=== PATIENT | female | born 1990 | race Caucasian/White ===

== ENCOUNTER 2022-07-16 14:54 | Emergency (ER) | payer BC, SELFPAY ==
[2022-07-16] VITALS (15 sets, daily range): BP systolic 95–117; BP diastolic 55–62; PULSE 67–87; RESP 14–27; TEMP 36.3; O2SAT 96–100
--- NOTE | ~2022-07-16 | XR_ITS ---
EXAMINATION: XR chest 2V DATE: 07/16/2022 15:46 INDICATION: Chest pain and shortness of breath TECHNIQUE: PA and lateral views of the chest are obtained. COMPARISON: None available FINDINGS: The lungs are free of acute opacities. No pleural effusion or pneumothorax. The cardiomedia stinal silhouette is normal. The visualized bones and soft tissues are unremarkable. Surgical clips i n the right upper quadrant are likely from prior cholecystectomy. IMPRESSION: 1. No acute cardiopulmonary abnormality. Reviewed, dictated and finalized at location F. AL EVISCERATOR
--- NOTE | 2022-07-16 14:58 | ECG_ITS ---
Measurements Intervals [place] Rate: 78 P: 37 MA: 131 QRS: 17 QRSD: 107 T: 4 QT: 349 QTc: 398 Interpretive Statements SINUS RHYTHM WITH SINUS ARRHYTHMIA NONSPECIFIC T-WAVE ABNORMALITY- ANT/INF LEADS BASELINE WANDER- V3, V6 BORDERLINE ECG NO PREVIOUS ECG AVAILABLE FOR COMPARISON Electronically Signed On 07-16-2022 15:41:25 [employer] by Mo Rodriguez D.O.
--- NOTE | 2022-07-16 15:00 | PC.NURSE ---
PT WAS CALLED FOR TRIAGE/EKG. NO ANSWER
[2022-07-16 15:38] LABS: Basophils Percent Auto 0.5 % (0.2-1.2); Eosinophils Absolute Auto 0.2 K/mm3 (0-0.3); Hematocrit 40.1 % (37.0-47.0); Hemoglobin 13.6 g/dL (12.0-15.0); Immature Granulocyte Absolute 0.03 K/mm3 (0.00-0.031); Immature Granulocyte Percent A 0.5 % (0-0.5); Lymphocytes Absolute Auto 1.89 K/mm3 (0.9-3.2); Mean Corpuscular HGB Conc 33.9 g/dl (32-36); Mean Corpuscular Hemoglobin 32.5 pg (26-34); Mean Corpuscular Volume 95.9 fl (80-100); Mean Platelet Volume 9.3 fl (7.4-10.4); Monocytes Absolute Auto 0.4 K/mm3 (0.1-0.6); Monocytes Percent Auto 5.9 % (2.6-8.5); Neutrophils Absolute Auto 3.8 K/mm3 (1.3-6.7); Neutrophils Percent Auto 60.1 % (45.5-73.1); Platelet Count Result 202 k/mm3 (150-375); Red Blood Count 4.18 M/mm3 (4.2-5.4); Red Cell Distribution Width 12.3 % (11.5-14.5); White Blood Count 6.3 K/mm3 (4.5-10.0)
[2022-07-16 15:51] LABS: Alanine Aminotransferase 60 U/L (6-35); Albumin Level 4.7 g/dL (3.5-5.1); Alkaline Phosphatase 75 U/L (38-126); Anion Gap 8 mmol/L (8-16); Aspartate Amino Transferase 39 U/L (14-36); Bilirubin,Total 0.4 mg/dL (0.2-1.3); Blood Urea Nitrogen 12 mg/dL (7-17); Calcium 9.2 mg/dL (8.4-10.2); Carbon Dioxide 28 mmol/L (22-30); Chloride 99 mmol/L (98-107); Estimated CRCL calculation 113 ml/min; Estimated Glomerular Filt Rate > 60; Glucose 119 mg/dL (65-110); Lipase 63 U/L (23-300); Potassium 3.6 mmol/L (3.4-5.0); Sodium 135 mmol/L (137-145)
[2022-07-16 15:57] LABS: Prothrombin Time 12.6 Seconds (11.1-14.7)
[2022-07-16 15:58] LABS: Partial Thromboplastin Time 29.9 SECONDS (22.3-36.8)
[2022-07-16 16:00] LABS: Troponin I < 0.012 ng/mL (0.000-0.034)
[2022-07-16 20:11] LABS: Troponin I < 0.012 ng/mL (0.000-0.034)
--- NOTE | 2022-07-16 20:45 | ED.CHESTPAIN ---
HPI - Chest Pain General Chief Complaint: Chest Pain Stated Complaint: Chest pain Time Seen by Provider: 07/16/22 20:38 Source: RN notes reviewed History of Present Illness HPI narrative: Patient presents emergency department from home for chest pain. Patient states that pain began yesterday pain is across the bilateral anterior chest and is described as a pressure sensation states the pain has been constant since yesterday but today developed a bandlike sensation across her lower chest that felt like a squeezing. States that nothing makes the pain better or worse the squeezing pressure has been constant throughout the entire day today as well states she notes mild shortness of breath with that. She denies any fevers or chills nausea vomiting diarrhea or any other symptoms. States that she denies taking thing for pain at home. States she does have a history of previous cholecystectomy Related Data Allergies Allergy/AdvReac Type Severity Reaction Status Date / Time No Known Allergies Allergy Verified 07/16/22 21:15 Review of Systems Review of Systems: Gen.: Denies fevers or chills ENT: Denies congestion Respiratory: Reports shortness of breath CV: See HPI GI: Denies abdominal pain nausea, emesis or diarrhea Musculoskeletal: Denies back pain or muscle pain Neuro: Denies numbness, tingling, weakness or focal weakness Skin: Denies rash Except as documented, all other systems reviewed and negative [facility] Past Medical History Medical History (Updated 07/16/22 @ 22:41 by Dinesh Denise DO) Patient denies significant medical history Surgical History Surgical History (Updated 07/16/22 @ 20:47 by Dinesh Denise DO) Hx of cholecystectomy Social History Social History (Updated 07/16/22 @ 20:47 by Dinesh Denise DO) Tobacco type: e-cigarettes/vaping Exam Narrative: APPEARANCE: No acute distress, nontoxic, resting in bed EYES: EOMI HEENT: Normocephalic, atraumatic, OMM RESPIRATORY: No respiratory distress Clear to auscultation bilaterally with no rhonchi wheezing or rales. CARDIOVASCULAR: Regular rate and rhythm without murmurs rubs or gallops. ABDOMINAL: Soft, nontender, nondistended, no rebound or guarding MUSCULOSKELETAl: Moves all extremities. No clubbing, cyanosis or edema. NEURO: Awake and alert. Following commands, speech normal, no focal deficits SKIN:: Warm, dry. No rashes lesions or abrasions PSYCHIATRIC: Normal affect/mood, Course Course Emergency Course: Patient states pain is improved with medication Discussed with patient results of workup and diagnosis. Discussed need for follow-up with primary care, proper use of medication, and reasons to return to the emergency department. Patient understands and agrees to current treatment plan Vital Signs Vital signs: Vital Signs Temperature 97.4 F L 07/16/22 15:17 Pulse Rate 78 07/16/22 15:17 Respiratory Rate 16 07/16/22 15:17 Blood Pressure 117/56 L 07/16/22 15:17 Pulse Oximetry 99 07/16/22 15:17 Temperature 97.3 F L 07/16/22 17:21 Pulse Rate 78 07/16/22 22:03 Respiratory Rate 24 H 07/16/22 22:03 Blood Pressure 95/55 L 07/16/22 20:47 Pulse Oximetry 100 07/16/22 22:03 Oxygen Delivery Room Air 07/16/22 21:48 MDM - Chest Pain MDM Narrative Medical decision making narrative: Patient's EKGs and labs are without significant high risk changes. Cardiac risk factors reviewed. Patient is felt likely low risk for ACS and reasonable for further risk stratification testing as an outpatient. Pain was not sudden or maximal in onset without tearing or ripping quality. No other signs of symptoms suggest aortic dissection. A low-risk Wells criteria is noted, PE is felt to be unlikely. Patient also had negative D-dimer in ED no pneumonia seen on evaluation today. Patient is felt to be a reasonable candidate for continued evaluation as an outpatient Differential Diagnosis Differential diagnosis: Likely atypical chest pain,
[2022-07-16] MEDS: SODIUM CHLORIDE 0.9% IV 1,000 ML 999 ML IV CONT (21:23)
[2022-07-16] MEDS: KETOROLAC 30 MG/ML VIAL (*BKC) IV PUSH (21:24)
[2022-07-16 21:58] LABS: Appearance Urine Clear (Clear); Bilirubin Urine Negative (Negative); Blood Urine Negative (Negative); Color Urine Yellow (Yellow); Glucose Urine UA Negative (Negative); Ketones Urine Negative (Negative); Leukocyte Esterase Ur Negative LEU/UL (Negative); Nitrate Urine Negative (Negative); Protein Urine Negative (Negative); Urobilinogen Urine 0.2 mg/dL (<2.0)
[2022-07-16 22:04] LABS: Bacteria Urine Trace /hpf; Mucus Urine Rare /lpf; RBC Urine 0-2 /hpf (0-2); Squamous Epithelial Cell Urine Occasional /hpf (Few); WBC Urine 0-3 /hpf
[2022-07-16 22:08] LABS: Add Urine Microscopic? YES
[2022-07-16 22:19] LABS: Pregnancy On Board Control Positive; Urine Pregnancy Test Negative
[2022-07-16 22:19] LABS: D Dimer 0.44 ug/mL (<0.48)
[2022-07-16 22:34] LABS: Troponin I < 0.012 ng/mL (0.000-0.034)
== END 2022-07-16 22:50 | disposition home or self-care (01) ==
PROVIDERS: Emergency Medicine; Emergency Provider Emergency Medicine
DX: R07.89 Other chest pain (principal); F17.290 Nicotine dependence, other tobacco product, uncomplicated
CPT/HCPCS: 36415; 71046; 80053; 81001; 81025; 83690; 84484; 85025; 85380; 85610; 85730; 93005; 96361; 96374; 99284; A9270; J1885; J7030

== ENCOUNTER 2023-11-18 22:01 | Emergency (ER) | payer BC, SELFPAY ==
[2023-11-18] VITALS (10 sets, daily range): BP systolic 111–130; BP diastolic 61–79; PULSE 75–94; RESP 17–23; TEMP 36.2; O2SAT 96–100
--- NOTE | ~2023-11-18 | XR_ITS ---
XR chest 2V Ordering provider: Elton Venegas History: 33 years Female with . CP x 2-3 mos worsening tonight . Comparison: July 16, 2022 FINDINGS: MEDIASTINUM: The cardiac silhouette is not enlarged. LUNGS: No infiltrates, effusions or pneumothorax. OTHER: No free air under the diaphragm. IMPRESSION: No acute cardiopulmonary pathology. Reviewed, dictated and finalized at location A.
--- NOTE | 2023-11-18 22:02 | ECG_ITS ---
Test Date: 2023-11-18 22:08:58 Measurements Intervals [place] Rate: 74 P: 29 LA: 121 QRS: 15 QRSD: 89 T: 3 QT: 344 QTc: 383 Interpretive Statements SINUS RHYTHM CONSIDER INFERIOR INFARCT, AGE INDETERMINATE ABNORMAL ECG No previous ECG available for comparison Electronically Signed On 11-19-2023 07:49:10 CDT by Mo Rodriguez D.O.
[2023-11-18 22:44] LABS: Basophils Percent Auto 0.4 % (0.2-1.2); Eosinophils Absolute Auto 0.2 K/mm3 (0-0.3); Eosinophils Percent Auto 2.8 % (0-4.4); Hematocrit 39.5 % (37.0-47.0); Immature Granulocyte Absolute 0.06 K/mm3 (0.00-0.031); Immature Granulocyte Percent A 0.7 % (0-0.5); Lymphocytes Absolute Auto 2.46 K/mm3 (0.9-3.2); Lymphocytes Percent Auto 29.6 % (18.3-44.2); Mean Corpuscular HGB Conc 35.4 g/dl (32-36); Mean Corpuscular Hemoglobin 33.1 pg (26-34); Mean Corpuscular Volume 93.4 fl (80-100); Mean Platelet Volume 9.2 fl (7.4-10.4); Monocytes Absolute Auto 0.6 K/mm3 (0.1-0.6); Monocytes Percent Auto 7.6 % (2.6-8.5); Neutrophils Absolute Auto 4.9 K/mm3 (1.3-6.7); Neutrophils Percent Auto 58.9 % (45.5-73.1); Platelet Count Result 245 k/mm3 (150-375); Red Blood Count 4.23 M/mm3 (4.2-5.4); Red Cell Distribution Width 12.3 % (11.5-14.5); White Blood Count 8.3 K/mm3 (4.5-10.0)
[2023-11-18 23:09] LABS: Alanine Aminotransferase 137 U/L (6-35); Albumin Level 4.8 g/dL (3.5-5.1); Alkaline Phosphatase 89 U/L (38-126); Anion Gap 8 mmol/L (4-12); Aspartate Amino Transferase 76 U/L (14-36); Bilirubin,Total 0.5 mg/dL (0.2-1.3); Blood Urea Nitrogen 10 mg/dL (7-17); Calcium 9.3 mg/dL (8.4-10.2); Carbon Dioxide 26 mmol/L (22-30); Chloride 104 mmol/L (98-107); Estimated CRCL calculation 116 ml/min; Estimated Glomerular Filt Rate > 60; Glucose 82 mg/dL (65-110); Lipase 115 U/L (23-300); Potassium 3.6 mmol/L (3.4-5.0); Sodium 138 mmol/L (137-145)
[2023-11-18 23:15] LABS: INR 0.9; Partial Thromboplastin Time 29.3 Seconds (22.3-36.8)
[2023-11-18 23:20] LABS: Troponin I < 0.012 ng/mL (0.000-0.034)
[2023-11-18] MEDS: ASPIRIN 81 MG CHEWABLE TABLET 324 MG PO (23:20)
[2023-11-19] VITALS (8 sets, daily range): BP systolic 117–128; BP diastolic 61–69; PULSE 74–90; RESP 16–20; O2SAT 95–100
--- NOTE | 2023-11-19 00:42 | ED.CHESTPAIN ---
HPI - Chest Pain General Chief Complaint: Chest Pain Stated Complaint: I'm having a high heart rate , chest pain Time Seen by Provider: 11/19/23 00:11 Source: patient Limitations: no limitations History of Present Illness HPI narrative: Patient is a 33-year-old female presents to emergency department complaining of a flutter sensation in her chest and pressure and has been coming and going for the past 3 months, states that this episode seems he has been going on for the past 2-3 days, admits to mild shortness of breath with it, feels like a pressure in the middle of her chest, not radiate, has not tried anything for, denies any history of this in the past. Patient denies being a smoker, denies high blood pressure or diabetes or high cholesterol, family history of heart disease at a young age in immediate family members. Patient denies history of abnormal heart rhythms. Patient denies recent injuries, recent illness, cough, fever, numbness, weakness, bloody bowel movements, abdominal pain. Related Data Allergies Allergy/AdvReac Type Severity Reaction Status Date / Time No Known Allergies Allergy Verified 02/12/23 13:27 Review of Systems Review of Systems: A 10 system review of systems was completed on the patient and is negative except for what is stated in the HPI. Nursing and ancillary documentation was reviewed. [facility] Past Medical History Medical History LELE positive Patient denies significant medical history Sjogren's syndrome without extraglandular involvement Surgical History Surgical History Hx of cholecystectomy Family History Family History Other Diabetes mellitus Heart disease Hypertension Social History Social History Smoking status: Current every day smoker Tobacco type: e-cigarettes/vaping Alcohol intake: current Substance use: never Substance use type: does not use Lack of Transportation: No Lack of Food: Never True Current Housing: I Have Housing Concerned About Future Housing: No Difficulty Paying Gas/Electric Bills: No Difficulty Paying for Meds: No Currently Unemployed: No Education: Decline to Answer Difficulty w/ Childcare or Family Care: No Living arrangements: with family Occupation/Education: occupation Gender identity (if verbalized by the patient): Female Comments At time of signature, I have reviewed and agree with nursing past medical, surgical, social and family history unless otherwise noted. Please see the nursing chart for further information. There is no relevant family history pertinent to the presenting complaint. Exam Narrative: CONST: No acute distress. Well nourished. HENMT: Head is normocephalic and atraumatic. Moist mucous membranes. No posterior oropharynx erythema. EYES: No conjunctival icterus, injection, or pallor. PERRL. NECK: No meningeal signs. RESP: Able to speak in full sentences. Normal respiratory effort. CTAB. CARDIO: Regular rate. Regular rhythm. 2+ DP and radial pulses bilaterally. GI: Nondistended. No tenderness to palpation. Soft. : No CVA tenderness to palpation. SKIN: No rashes or lesions noted on exposed skin. NEURO: Oriented x3. Moves all extremities. EXTREM/MSK/BACK: No pedal edema. PSYCH: Normal affect. Course Vital Signs Vital signs: Vital Signs Temperature 97.2 F L 11/18/23 22:19 Pulse Rate 81 11/18/23 22:19 Blood Pressure 123/61 11/18/23 22:19 Pulse Oximetry 99 11/18/23 22:19 Temperature 97.2 F L 11/18/23 22:19 Pulse Rate 81 11/18/23 22:19 Blood Pressure 123/61 11/18/23 22:19 Pulse Oximetry 98 11/18/23 23:24 Oxygen Delivery Room Air 11/18/23 23:24 MDM - Chest Pain MDM Narrative Medical decision making narrative: Patient presents
== END 2023-11-19 00:58 | disposition home or self-care (01) ==
PROVIDERS: Emergency Provider Student in an Organized Health Care Education/Training Program
DX: R07.9 Chest pain, unspecified (principal); R74.01 Elevation of levels of liver transaminase levels; F17.290 Nicotine dependence, other tobacco product, uncomplicated
CPT/HCPCS: 36415; 71046; 80053; 83690; 84484; 85025; 85610; 85730; 93005; 99284; A9270